=== PATIENT | male | born 1995 | race African-American/Black ===

== ENCOUNTER 2017-01-29 19:23 | Emergency (ER) | payer OTHER ==
[~2017-01-29] VITALS: Ht 167.6 cm; Wt 45.4 kg
[~2017-01-29 19:23] MED LIST: HYDR-2595; SOTA80TA
[2017-01-29 21:13] LABS: Basophils # (auto) 0 uL; Basophils % (auto) 0.3 % (0.0-2.0); DEFINITIVE VIEW TRANSMISSION; Eosinophils # (auto) 0 uL; Eosinophils % (auto) 0.1 % (0.0-7.0); Hemoglobin 18.2 g/dL (13.5-17.5); Lymphocytes # (auto) 1.5 uL; Lymphocytes % (auto) 19.3 % (10.0-50.0); Mean Corpuscular Hemoglobin 28.1 pg (28.0-32.0); Mean Corpuscular Hgb Conc. 32.3 g/dL (32.0-36.0); Mean Corpuscular Volume 86.8 fL (80.0-100.0); Mean Platelet Volume 9.4 fL (7.4-10.4); Monocytes # (auto) 0.3 uL; Monocytes % (auto) 3.9 % (0.0-12.0); Neutrophils # (auto) 5.7 uL; Neutrophils % (auto) 76.4 % (37.0-80.0); Platelet Count (auto) 320 10^3/uL (140-450); Red Cell Distribution Width 13.7 % (11.6-16.0); White Blood Cell 7.5 10^3/uL (4.4-10.8)
[2017-01-29] MEDS ORDERED: ONDANSETRON HCL 4 MG/2 ML VIAL IV ONE (21:15)
[2017-01-29] MEDS ORDERED: HYDROmorphone HCL 2 MG/ML VL IV ONE (21:15)
[2017-01-29 21:34] LABS: Albumin 4.3 g/dL (3.4-5.0); BUN/Creatinine Ratio 32.7; Calcium 10.1 mg/dL (8.5-10.1); Magnesium 2.2 mg/dL (1.6-2.6)
[2017-01-29 21:36] LABS: Bilirubin, Total 0.7 mg/dL (0.2-1.0); Total Protein 8.3 g/dL (6.4-8.2)
[2017-01-29 22:01] LABS: Hematocrit 56.4 % (41.0-53.0)
[2017-01-29 23:07] LABS: Urine Bilirubin 1+ (Negative); Urine Blood Negative /uL (Negative); Urine Color Yellow (Yellow); Urine Glucose Normal (Normal); Urine Mucus MANY (None Seen); Urine Nitrite Negative (Negative); Urine RBC 3 /hpf (0 - 3); Urine pH 6.5 (5.0-8.0)
[2017-01-29] MEDS ORDERED: GLYCERIN ADULT RECTAL SUPP PR ONE (23:15)
[2017-01-29 23:16] LABS: Urine Ketone 4+ (Negative)
[2017-01-29 23:17] LABS: Urine Ca Oxalate Crystal FEW (None Seen)
[2017-01-29] MEDS ORDERED: SODIUM CHLORIDE 0.9% 1,000 ML IV ONE (23:30)
[2017-01-30 02:20] VITALS: BP 91/59
== END 2017-01-30 03:20 | disposition home or self-care (01) ==
LOC: ER 19:38
DX: K59.00 Constipation, unspecified (principal); E86.0 Dehydration; R10.33 Periumbilical pain; I48.91 Unspecified atrial fibrillation; F12.10 Cannabis abuse, uncomplicated; M62.50 Muscle wasting and atrophy, not elsewhere classified, unspecified site
CPT/HCPCS: 36415; 74000; 80053; 81001; 82150; 83690; 83735; 85025; 96361; 96374; 96375; 99285; J1170; J2405; J7030

== ENCOUNTER 2017-10-18 11:39 | Emergency (ER) | payer OTHER ==
[~2017-10-18 11:39] MED LIST changes: -HYDR-2595; +HYDR-2595 PO
[2017-10-18 14:41] LABS: Basophils # (auto) 0 uL; Basophils % (auto) 0.8 % (0.0-2.0); Eosinophils # (auto) 0.1 uL; Hematocrit 44.6 % (41.0-53.0); Hemoglobin 14.5 g/dL (13.5-17.5); Lymphocytes # (auto) 1.3 uL; Lymphocytes % (auto) 23.4 % (10.0-50.0); Mean Corpuscular Hemoglobin 28.9 pg (28.0-32.0); Mean Corpuscular Hgb Conc. 32.5 g/dL (32.0-36.0); Monocytes # (auto) 0.3 uL; Monocytes % (auto) 5.5 % (0.0-12.0); Neutrophils # (auto) 3.8 uL; Neutrophils % (auto) 69.3 % (37.0-80.0); Nucleated Red Blood Cells % 0.1 %; Platelet Count (auto) 329 10^3/uL (140-450); Red Blood Cells 5.01 10^6/uL (4.5-5.90); Red Cell Distribution Width 14.9 % (11.8-14.3); White Blood Cell 5.5 10^3/uL (4.4-10.8)
[2017-10-18 14:59] LABS: Alanine Aminotransferase 41 U/L (16-61); Albumin 3.6 g/dL (3.4-5.0); Alkaline Phosphatase 70 U/L (45-117); Anion Gap 8 (5-15); Aspartate Aminotransferase 51 U/L (15-37); BUN/Creatinine Ratio 106.7; Bilirubin, Total 0.3 mg/dL (0.2-1.0); Blood Urea Nitrogen 16 mg/dL (7-18); Calcium 8.8 mg/dL (8.5-10.1); Carbon Dioxide 24 mmol/L (21-32); Chloride 108 mmol/L (98-107); GFR African American 1073 mL/min; GFR Non-African American 887 mL/min; Glucose 87 mg/dL (74-106); Potassium 4.1 mmol/L (3.5-5.1); Sodium 140 mmol/L (136-145); Total Protein 7.3 g/dL (6.4-8.2)
[2017-10-18] MEDS ORDERED: SODIUM CHLORIDE 0.9% 1,000 ML IV ONE (15:31)
[2017-10-18 17:34] LABS: Urine Bacteria NONE SEEN /hpf (None Seen); Urine Blood Negative /uL (Negative); Urine Mucus FEW (None Seen); Urine Specific Gravity 1.014 (1.001-1.035); Urine WBC 1 /hpf (0 - 3)
[2017-10-18 18:41] VITALS: BP 114/66
== END 2017-10-18 18:36 | disposition home or self-care (01) ==
LOC: ER 11:39 → EDBD 11:39 → ER 18:36
DX: E86.0 Dehydration (principal); I48.91 Unspecified atrial fibrillation
CPT/HCPCS: 36415; 51702; 80053; 81001; 84484; 85025; 93005; 94761; 96360; 99285; J7030

== ENCOUNTER 2017-11-02 03:47 | Inpatient (IN) | payer OTHER ==
[~2017-11-02] VITALS: Ht 142.2 cm; Wt 40.2 kg
[2017-11-02] MEDS ORDERED: DIGOXIN (250MCG/ML) 2 ML AMPULE ONE (03:57)
[2017-11-02] MEDS ORDERED: DIGOXIN (250MCG/ML) 2 ML AMPULE IV ONE (04:15)
[2017-11-02 04:20] LABS: Basophils # (auto) 0.1 uL; Basophils % (auto) 0.8 % (0.0-2.0); Eosinophils # (auto) 0.1 uL; Eosinophils % (auto) 1.6 % (0.0-7.0); Hematocrit 44.7 % (41.0-53.0); Hemoglobin 15.1 g/dL (13.5-17.5); Lymphocytes # (auto) 2.8 uL; Lymphocytes % (auto) 36.3 % (10.0-50.0); Mean Corpuscular Hemoglobin 29.3 pg (28.0-32.0); Mean Corpuscular Hgb Conc. 33.7 g/dL (32.0-36.0); Mean Corpuscular Volume 87.1 fL (80.0-100.0); Monocytes # (auto) 0.7 uL; Monocytes % (auto) 9.4 % (0.0-12.0); Neutrophils # (auto) 3.9 uL; Neutrophils % (auto) 51.9 % (37.0-80.0); Nucleated Red Blood Cells % 0.1 %; Platelet Count (auto) 297 10^3/uL (140-450); Red Blood Cells 5.13 10^6/uL (4.5-5.90); Red Cell Distribution Width 14.8 % (11.8-14.3); White Blood Cell 7.6 10^3/uL (4.4-10.8)
[2017-11-02 04:50] LABS: Alanine Aminotransferase 28 U/L (16-61); Albumin 3.6 g/dL (3.4-5.0); Alkaline Phosphatase 81 U/L (45-117); Anion Gap 9 (5-15); Aspartate Aminotransferase 43 U/L (15-37); Bilirubin, Total 0.1 mg/dL (0.2-1.0); Calcium 8.9 mg/dL (8.5-10.1); Carbon Dioxide 23 mmol/L (21-32); Chloride 109 mmol/L (98-107); Glucose 108 mg/dL (74-106); Magnesium 2.5 mg/dL (1.6-2.6); Sodium 141 mmol/L (136-145)
[2017-11-02 05:22] LABS: Blood Urea Nitrogen 14 mg/dL (7-18)
[2017-11-02 05:24] LABS: BUN/Creatinine Ratio 93.3; GFR African American 1073 mL/min; GFR Non-African American 887 mL/min
[2017-11-02] MEDS ORDERED: MORPHINE SULF INJ 2 MG/ML SYRINGE 1ML IV PRN (09:15)
[2017-11-02] MEDS ORDERED: ONDANSETRON HCL 4 MG/2 ML VIAL IV PRN (09:15)
[2017-11-02] MEDS ORDERED: NITROGLYCERIN 0.4 MG SL TAB SL PRN (09:15)
[2017-11-02] MEDS ORDERED: HYDROcodone-ACET 5/325MG TAB PO PRN (09:15)
[2017-11-02] MEDS ORDERED: MORPHINE SULFATE 10 MG/ML INJ 1ML SDV IV PRN (09:30)
[2017-11-02] MEDS: SOTALOL HCL 80 MG TAB PO SCH (10:00)
[2017-11-02 14:00] VITALS: BP 111/76
[2017-11-02 14:21] VITALS: BP 111/76
[2017-11-02] MEDS ORDERED: CHOL20007 PO (14:33)
[2017-11-02] MEDS ORDERED: ASPI-378 PO (14:33)
[2017-11-02] MEDS ORDERED: ASPirin 81 mg TAB PO ONE (16:15)
[2017-11-02 17:00] VITALS: BP 97/70
[2017-11-02 22:00] VITALS: BP 118/57
[2017-11-03 06:20] VITALS: BP 93/43
[2017-11-03 06:57] LABS: Basophils # (auto) 0 uL; Basophils % (auto) 0.8 % (0.0-2.0); Eosinophils # (auto) 0.1 uL; Eosinophils % (auto) 2.2 % (0.0-7.0); Hematocrit 41.1 % (41.0-53.0); Hemoglobin 13.8 g/dL (13.5-17.5); Lymphocytes # (auto) 1.8 uL; Mean Corpuscular Hemoglobin 29.5 pg (28.0-32.0); Mean Corpuscular Hgb Conc. 33.7 g/dL (32.0-36.0); Mean Corpuscular Volume 87.5 fL (80.0-100.0); Monocytes # (auto) 0.4 uL; Monocytes % (auto) 9.2 % (0.0-12.0); Neutrophils # (auto) 1.9 uL; Neutrophils % (auto) 45.8 % (37.0-80.0); Nucleated Red Blood Cells % 0.2 %; Platelet Count (auto) 213 10^3/uL (140-450); Red Cell Distribution Width 14.6 % (11.8-14.3); White Blood Cell 4.2 10^3/uL (4.4-10.8)
[2017-11-03 07:23] LABS: Anion Gap 8 (5-15); Blood Urea Nitrogen 10 mg/dL (7-18); Calcium 8.6 mg/dL (8.5-10.1); Carbon Dioxide 25 mmol/L (21-32); Chloride 104 mmol/L (98-107); Glucose 79 mg/dL (74-106); Potassium 4.1 mmol/L (3.5-5.1); Sodium 137 mmol/L (136-145)
[2017-11-03 07:41] LABS: BUN/Creatinine Ratio 66.7; GFR African American 1073 mL/min; GFR Non-African American 887 mL/min
[2017-11-03 09:00] VITALS: BP 92/70
[2017-11-03] MEDS: SOTALOL HCL 80 MG TAB PO SCH (09:12)
[2017-11-03] MEDS ORDERED: ASPirin 81 mg TAB PO SCH (10:00)
[2017-11-03 12:30] VITALS: BP 92/70
[2017-11-03 12:53] VITALS: BP 92/70
== END 2017-11-03 14:10 | disposition home or self-care (01) | DRG 201 ==
LOC: EDBD 03:47 → ER 03:54 → TELE 03:55 → TELE-EAST 14:48
PROVIDERS: ADMIT Internal Medicine; ATTEND Internal Medicine
DX: I48.91 Unspecified atrial fibrillation (principal); G71.0 Muscular dystrophy; E86.0 Dehydration; Z79.82 Long term (current) use of aspirin
CPT/HCPCS: 36415; 71045; 80048; 80053; 83735; 84443; 84484; 85025; 93005; 94761; 96374; J2405

== ENCOUNTER 2017-12-06 11:09 | Inpatient (IN) | payer OTHER ==
[~2017-12-06] VITALS: Ht 149.9 cm; Wt 43.9 kg
[~2017-12-06 11:09] MED LIST changes: +ASPI-378 PO; +CHOL20007 PO
[2017-12-06] MEDS ORDERED: SODIUM CHLORIDE 0.9% 1,000 ML IVB ONE (11:17)
[2017-12-06] MEDS ORDERED: ADENOSINE 6 MG/2 ML INJ IV ONE ×5 (11:30→15:00)
[2017-12-06] MEDS ORDERED: DILTIAZEM HCL 50 MG/10 ML VIAL IV ONE (11:45)
[2017-12-06] MEDS ORDERED: DILTIAZEM HCL 25 MG/5 ML VIAL IV ONE (11:45)
[2017-12-06] MEDS ORDERED: DIGOXIN (250MCG/ML) 2 ML AMPULE IV ONE (11:45)
[2017-12-06] MEDS ORDERED: DILTIAZEM 125mg/125ml BAG KIT 125 ML IV ONE (11:45)
[2017-12-06] MEDS ORDERED: AMIODARONE HCL 900 MG in DEXTROSE 500 ML IV SCH (12:14)
[2017-12-06] MEDS ORDERED: AMIODARONE HCL 150 MG in D5W 5% 100 ML IV ONE (12:15)
[2017-12-06] MEDS ORDERED: DIGOXIN 0.25 MG TAB ONE (13:14)
[2017-12-06] MEDS: DIGOXIN 0.25 MG TAB PO SCH (13:18)
[2017-12-06 13:28] LABS: Basophils # (auto) 0 uL; Basophils % (auto) 0.4 % (0.0-2.0); Eosinophils # (auto) 0 uL; Eosinophils % (auto) 0.6 % (0.0-7.0); Hematocrit 42.4 % (41.0-53.0); Hemoglobin 14.3 g/dL (13.5-17.5); Lymphocytes # (auto) 0.8 uL; Lymphocytes % (auto) 10.9 % (10.0-50.0); Mean Corpuscular Hemoglobin 29.6 pg (28.0-32.0); Mean Corpuscular Hgb Conc. 33.6 g/dL (32.0-36.0); Mean Corpuscular Volume 87.9 fL (80.0-100.0); Monocytes # (auto) 0.4 uL; Monocytes % (auto) 5.2 % (0.0-12.0); Neutrophils # (auto) 6.2 uL; Neutrophils % (auto) 82.9 % (37.0-80.0); Nucleated Red Blood Cells % 0.1 %; Platelet Count (auto) 214 10^3/uL (140-450); Red Blood Cells 4.83 10^6/uL (4.5-5.90); Red Cell Distribution Width 14.8 % (11.8-14.3); White Blood Cell 7.4 10^3/uL (4.4-10.8)
[2017-12-06] MEDS ORDERED: HYDROcodone-ACET 5/325MG TAB PO PRN (13:30)
[2017-12-06 13:37] LABS: Albumin 3.5 g/dL (3.4-5.0); Bilirubin, Total 0.2 mg/dL (0.2-1.0); Calcium 8.3 mg/dL (8.5-10.1); Magnesium 2.2 mg/dL (1.6-2.6); Potassium 4.2 mmol/L (3.5-5.1); Total Protein 6.8 g/dL (6.4-8.2)
[2017-12-06] MEDS ORDERED: NITROGLYCERIN 0.4 MG SL TAB SL PRN (13:45)
[2017-12-06] MEDS ORDERED: MORPHINE SULFATE 4 MG/ML SYR/VIAL IV PRN (13:45)
[2017-12-06] MEDS ORDERED: ONDANSETRON HCL 4 MG/2 ML VIAL IV PRN (13:45)
[2017-12-06] MEDS ORDERED: DOCUSATE SOD 100 MG CAP PO PRN (13:45)
[2017-12-06] MEDS ORDERED: TEMAZEPAM 15 MG CAP PO PRN (13:45)
[2017-12-06] MEDS ORDERED: ACETAMINOPHEN 325 MG TAB PO PRN (13:45)
[2017-12-06] MEDS: SODIUM CHLOR 0.9% PF (SALINE LOCK) 10ML VIAL IV SCH ×2 (14:57→22:00)
[2017-12-06] MEDS: FAMOTIDINE 20 MG TAB PO SCH (22:00)
[2017-12-06] MEDS: SOTALOL HCL 80 MG TAB PO SCH (22:00)
[2017-12-07] MEDS: SODIUM CHLOR 0.9% PF (SALINE LOCK) 10ML VIAL IV SCH ×3 (05:25→22:01)
[2017-12-07 05:49] LABS: Basophils # (auto) 0 uL; Basophils % (auto) 0.7 % (0.0-2.0); Eosinophils # (auto) 0.1 uL; Eosinophils % (auto) 1.9 % (0.0-7.0); Hematocrit 38.5 % (41.0-53.0); Hemoglobin 12.9 g/dL (13.5-17.5); Lymphocytes # (auto) 1.9 uL; Mean Corpuscular Hemoglobin 29.2 pg (28.0-32.0); Mean Corpuscular Hgb Conc. 33.5 g/dL (32.0-36.0); Mean Corpuscular Volume 87.3 fL (80.0-100.0); Monocytes # (auto) 0.5 uL; Monocytes % (auto) 10.1 % (0.0-12.0); Neutrophils # (auto) 2.5 uL; Neutrophils % (auto) 49.3 % (37.0-80.0); Nucleated Red Blood Cells % 0.1 %; Platelet Count (auto) 212 10^3/uL (140-450); Red Blood Cells 4.42 10^6/uL (4.5-5.90); Red Cell Distribution Width 14.1 % (11.8-14.3); White Blood Cell 5.1 10^3/uL (4.4-10.8)
[2017-12-07 05:55] LABS: Alanine Aminotransferase 43 U/L (16-61); Albumin 3.1 g/dL (3.4-5.0); Anion Gap 4 (5-15); Aspartate Aminotransferase 47 U/L (15-37); Blood Urea Nitrogen 8 mg/dL (7-18); Calcium 7.8 mg/dL (8.5-10.1); Carbon Dioxide 29 mmol/L (21-32); Chloride 106 mmol/L (98-107); Glucose 75 mg/dL (74-106); Potassium 3.8 mmol/L (3.5-5.1); Sodium 139 mmol/L (136-145)
[2017-12-07 06:00] LABS: Alkaline Phosphatase 56 U/L (45-117); Bilirubin, Total 0.4 mg/dL (0.2-1.0)
[2017-12-07 06:33] LABS: BUN/Creatinine Ratio 53.3; GFR African American 1073 mL/min; GFR Non-African American 887 mL/min
[2017-12-07] MEDS: ASPirin-EC 81 mg tab PO SCH (09:43)
[2017-12-07] MEDS: CHOLECALCIFEROL (VITD3) 1,000 UNIT TAB PO SCH (09:43)
[2017-12-07] MEDS: MULTIPLE VITAMIN TAB PO SCH (09:43)
[2017-12-07] MEDS: SOTALOL HCL 80 MG TAB PO SCH (09:49)
[2017-12-07] MEDS: FAMOTIDINE 20 MG TAB PO SCH ×2 (09:49→22:04)
[2017-12-07 12:48] LABS: Urine Bacteria NONE SEEN /hpf (None Seen); Urine Blood Negative /uL (Negative); Urine Mucus FEW (None Seen); Urine WBC <1 /hpf (0 - 3)
[2017-12-07 13:04] LABS: Alcohol, Urine < 3.0 mg/dL (0-5); Amphetamine Screen, Urine NEGATIVE (NEGATIVE); Barbiturate Scree,Urine NEGATIVE (NEGATIVE); Benzodiazephine Screen, Urine NEGATIVE (NEGATIVE); Cannabinoid Screen, Urine POSITIVE (NEGATIVE); Cocaine Screen, Urine NEGATIVE (NEGATIVE); Opiate Scree,Urine NEGATIVE (NEGATIVE); Phencyclidine Screen, Urine NEGATIVE (NEGATIVE)
[2017-12-07 23:00] VITALS: BP 109/64
[2017-12-07 23:49] VITALS: BP 109/64
[2017-12-08 05:25] VITALS: BP 116/64
[2017-12-08] MEDS: SODIUM CHLOR 0.9% PF (SALINE LOCK) 10ML VIAL IV SCH ×2 (05:43→14:28)
[2017-12-08 09:00] VITALS: BP 99/50
[2017-12-08] MEDS ORDERED: DIGO0.2527 PO (10:12)
[2017-12-08] MEDS: CHOLECALCIFEROL (VITD3) 1,000 UNIT TAB PO SCH (10:31)
[2017-12-08] MEDS: FAMOTIDINE 20 MG TAB PO SCH (10:31)
[2017-12-08] MEDS: MULTIPLE VITAMIN TAB PO SCH (10:31)
[2017-12-08] MEDS: DIGOXIN 0.25 MG TAB PO SCH (10:31)
[2017-12-08] MEDS: ASPirin-EC 81 mg tab PO SCH (10:32)
[2017-12-08 13:00] VITALS: BP 106/63
[2017-12-08 17:00] VITALS: BP 104/59
== END 2017-12-08 18:49 | disposition home or self-care (01) | DRG 201 ==
LOC: ER 11:09 → EDBD 11:09 → TELE 11:10 → TELE-WESTW 12-07 22:51
PROVIDERS: ADMIT Internal Medicine; ATTEND Internal Medicine
DX: I47.1 Supraventricular tachycardia (principal); G71.0 Muscular dystrophy; I42.9 Cardiomyopathy, unspecified; D68.69 Other thrombophilia; E83.51 Hypocalcemia; I48.0 Paroxysmal atrial fibrillation
CPT/HCPCS: 36415; 71045; 80053; 80307; 81001; 83735; 83880; 84443; 84484; 85025; 87086; 93005; 93306; 94761; 96361; 96374; 96375; J0153; J7060

== ENCOUNTER 2017-12-19 11:54 | Observation (INO) | payer OTHER ==
[~2017-12-19 11:54] MED LIST changes: +DIGO0.2527 PO; -SOTA80TA
[2017-12-19 14:15] LABS: Basophils # (auto) 0 uL; Basophils % (auto) 0.5 % (0.0-2.0); Eosinophils # (auto) 0 uL; Eosinophils % (auto) 0.7 % (0.0-7.0); Hematocrit 45.3 % (41.0-53.0); Hemoglobin 15.1 g/dL (13.5-17.5); Lymphocytes # (auto) 1.2 uL; Lymphocytes % (auto) 23.1 % (10.0-50.0); Mean Corpuscular Hemoglobin 29.1 pg (28.0-32.0); Mean Corpuscular Hgb Conc. 33.3 g/dL (32.0-36.0); Mean Corpuscular Volume 87.5 fL (80.0-100.0); Monocytes # (auto) 0.4 uL; Monocytes % (auto) 7.1 % (0.0-12.0); Neutrophils # (auto) 3.6 uL; Neutrophils % (auto) 68.6 % (37.0-80.0); Platelet Count (auto) 249 10^3/uL (140-450); Red Blood Cells 5.18 10^6/uL (4.5-5.90); Red Cell Distribution Width 14.5 % (11.8-14.3); White Blood Cell 5.2 10^3/uL (4.4-10.8)
[2017-12-19 14:28] LABS: INR 0.99 (0.9-1.15); Partial Thromboplastin Time 31.3 sec (22.64-33.71); Prothrombin Time 10.8 sec (9.37-12.3)
[2017-12-19 14:38] LABS: Albumin 3.6 g/dL (3.4-5.0); BUN/Creatinine Ratio 71.4; Bilirubin, Total 0.3 mg/dL (0.2-1.0); Calcium 8.7 mg/dL (8.5-10.1); Magnesium 2.5 mg/dL (1.6-2.6); Potassium 3.7 mmol/L (3.5-5.1); Total Protein 7.3 g/dL (6.4-8.2)
[2017-12-19 16:20] VITALS: BP 107/62
== END 2017-12-19 17:25 | disposition home or self-care (01) | DRG 201 ==
LOC: ER 11:54 → EDBD 11:54 → OVERFLOW 13:48 → ER 17:25
PROVIDERS: ADMIT Family Medicine; ATTEND Family Medicine
DX: R00.2 Palpitations (principal); G71.0 Muscular dystrophy; Z99.3 Dependence on wheelchair; Z82.49 Family history of ischemic heart disease and other diseases of the circulatory system
CPT/HCPCS: 36415; 80053; 83735; 83880; 84443; 84484; 85025; 85610; 85730; 93005; 99285; G0378

== ENCOUNTER 2018-04-18 00:27 | Inpatient (IN) | payer OTHER ==
[~2018-04-18] VITALS: Ht 175.3 cm; Wt 40.4 kg
[~2018-04-18 00:27] MED LIST changes: -DIGO0.2527 PO
[2018-04-18] MEDS ORDERED: ADENOSINE 6 MG/2 ML INJ IV ONE ×4 (00:44→01:00)
[2018-04-18] MEDS ORDERED: LORazepam 2MG/ML-1ML VIAL IV ONE (01:00)
[2018-04-18] MEDS ORDERED: ASPirin 81 mg TAB PO ONE (04:15)
[2018-04-18 05:27] LABS: Basophils # (auto) 0 uL; Basophils % (auto) 0.4 % (0.0-2.0); Eosinophils # (auto) 0 uL; Eosinophils % (auto) 0.6 % (0.0-7.0); Hematocrit 42.6 % (41.0-53.0); Hemoglobin 14.3 g/dL (13.5-17.5); Lymphocytes # (auto) 1.4 uL; Lymphocytes % (auto) 21.5 % (10.0-50.0); Mean Corpuscular Hemoglobin 29.1 pg (28.0-32.0); Mean Corpuscular Hgb Conc. 33.5 g/dL (32.0-36.0); Mean Corpuscular Volume 86.9 fL (80.0-100.0); Monocytes # (auto) 0.5 uL; Monocytes % (auto) 8.3 % (0.0-12.0); Neutrophils # (auto) 4.5 uL; Neutrophils % (auto) 69.2 % (37.0-80.0); Platelet Count (auto) 242 10^3/uL (140-450); Red Cell Distribution Width 14.5 % (11.8-14.3); White Blood Cell 6.5 10^3/uL (4.4-10.8)
[2018-04-18 05:46] LABS: INR 1.02 (0.9-1.15); Partial Thromboplastin Time 31.1 sec (23.78-33.04); Prothrombin Time 10.9 sec (9.27-12.13)
[2018-04-18 05:58] LABS: Alanine Aminotransferase 37 U/L (16-61); Albumin 3.3 g/dL (3.4-5.0); Alkaline Phosphatase 52 U/L (45-117); Anion Gap 10 (5-15); Aspartate Aminotransferase 63 U/L (15-37); BUN/Creatinine Ratio 86.7; Bilirubin, Total 0.4 mg/dL (0.2-1.0); Blood Urea Nitrogen 13 mg/dL (7-18); Calcium 8.1 mg/dL (8.5-10.1); Carbon Dioxide 24 mmol/L (21-32); Chloride 106 mmol/L (98-107); GFR African American 1073 mL/min; GFR Non-African American 887 mL/min; Glucose 96 mg/dL (74-106); Magnesium 2.5 mg/dL (1.6-2.6); Potassium 3.6 mmol/L (3.5-5.1); Sodium 140 mmol/L (136-145); Total Protein 6.1 g/dL (6.4-8.2)
[2018-04-18] MEDS ORDERED: ONDANSETRON HCL 4 MG/2 ML VIAL IV PRN (06:00)
[2018-04-18] MEDS ORDERED: NITROGLYCERIN 0.4 MG SL TAB SL PRN (06:00)
[2018-04-18] MEDS ORDERED: MORPHINE SULF INJ 2 MG/ML SYRINGE 1ML IV PRN (06:00)
[2018-04-18] MEDS ORDERED: TEMAZEPAM 15 MG CAP PO PRN (06:00)
[2018-04-18] MEDS ORDERED: ACETAMINOPHEN 325 MG TAB PO PRN (06:00)
[2018-04-18] MEDS ORDERED: ENOXAPARIN SOD 100 MG/1 ML SYRINGE SC ONE (06:15)
[2018-04-18 08:30] VITALS: BP 117/72
[2018-04-18 09:00] VITALS: BP 117/72
[2018-04-18] MEDS ORDERED: ENOXAPARIN SOD 40 MG/0.4 ML SYRINGE SC SCH (10:00)
[2018-04-18] MEDS: ASPirin 81 mg TAB PO SCH (10:45)
[2018-04-18] MEDS: FAMOTIDINE 20 MG TAB PO SCH ×2 (10:46→21:51)
[2018-04-18] MEDS: ENOXAPARIN SOD 30 MG/0.3 ML SYRINGE SC SCH (10:48)
[2018-04-18] MEDS: SOTALOL HCL 80 MG TAB PO SCH ×2 (10:50→21:51)
[2018-04-18] MEDS: Ensure Enlive Strawberry 8oz Bottle PO SCH ×2 (12:00→18:00)
[2018-04-18 13:00] VITALS: BP 120/69
[2018-04-18 16:45] VITALS: BP 197/62
[2018-04-18 21:30] VITALS: BP 99/58
[2018-04-18] MEDS: MAGNESIUM SULFATE 1GM/100ML 100 ML IV SCH ×2 (21:50→23:31)
[2018-04-19 05:00] VITALS: BP_SYST 110; BP_SYST 147; BP_DIAS 71; BP_DIAS 85
[2018-04-19 06:33] LABS: Basophils # (auto) 0 uL; Basophils % (auto) 0.4 % (0.0-2.0); Eosinophils # (auto) 0.1 uL; Eosinophils % (auto) 1.3 % (0.0-7.0); Hematocrit 40.2 % (41.0-53.0); Lymphocytes # (auto) 1.3 uL; Lymphocytes % (auto) 29.5 % (10.0-50.0); Mean Corpuscular Hemoglobin 29.8 pg (28.0-32.0); Mean Corpuscular Hgb Conc. 34.8 g/dL (32.0-36.0); Mean Corpuscular Volume 85.4 fL (80.0-100.0); Monocytes # (auto) 0.5 uL; Monocytes % (auto) 11.9 % (0.0-12.0); Neutrophils # (auto) 2.4 uL; Neutrophils % (auto) 56.9 % (37.0-80.0); Nucleated Red Blood Cells % 0.1 %; Platelet Count (auto) 198 10^3/uL (140-450); Red Cell Distribution Width 14.4 % (11.8-14.3); White Blood Cell 4.3 10^3/uL (4.4-10.8)
[2018-04-19 07:05] LABS: Alanine Aminotransferase 37 U/L (16-61); Albumin 3.3 g/dL (3.4-5.0); Alkaline Phosphatase 48 U/L (45-117); Anion Gap 8 (5-15); Aspartate Aminotransferase 58 U/L (15-37); Bilirubin, Total 0.4 mg/dL (0.2-1.0); Blood Urea Nitrogen 7 mg/dL (7-18); Calcium 8.1 mg/dL (8.5-10.1); Carbon Dioxide 24 mmol/L (21-32); Chloride 108 mmol/L (98-107); Glucose 84 mg/dL (74-106); Potassium 3.7 mmol/L (3.5-5.1); Sodium 140 mmol/L (136-145); Total Protein 6.1 g/dL (6.4-8.2)
[2018-04-19] MEDS: Ensure Enlive Strawberry 8oz Bottle PO SCH ×3 (08:00→18:00)
[2018-04-19 08:09] LABS: BUN/Creatinine Ratio 46.7; GFR African American 1073 mL/min; GFR Non-African American 887 mL/min
[2018-04-19 09:00] VITALS: BP 100/65
[2018-04-19] MEDS: FAMOTIDINE 20 MG TAB PO SCH ×2 (09:59→21:25)
[2018-04-19] MEDS: ASPirin 81 mg TAB PO SCH (09:59)
[2018-04-19] MEDS: SOTALOL HCL 80 MG TAB PO SCH ×2 (10:00→21:56)
[2018-04-19 13:00] VITALS: BP 107/67
[2018-04-19] MEDS: HYDROcodone-ACET 5/325MG TAB PO PRN (14:30)
[2018-04-19] MEDS: ENOXAPARIN SOD 30 MG/0.3 ML SYRINGE SC SCH (14:30)
[2018-04-19 17:00] VITALS: BP 109/73
[2018-04-19 20:00] VITALS: BP 99/51
[2018-04-19 22:00] VITALS: BP 99/51
[2018-04-20 05:00] VITALS: BP 99/65
[2018-04-20 06:43] LABS: Basophils # (auto) 0 uL; Basophils % (auto) 0.6 % (0.0-2.0); Eosinophils # (auto) 0.1 uL; Eosinophils % (auto) 1.6 % (0.0-7.0); Hematocrit 42.1 % (41.0-53.0); Hemoglobin 14.6 g/dL (13.5-17.5); Lymphocytes # (auto) 1.5 uL; Lymphocytes % (auto) 31.4 % (10.0-50.0); Mean Corpuscular Hemoglobin 29.7 pg (28.0-32.0); Mean Corpuscular Hgb Conc. 34.6 g/dL (32.0-36.0); Mean Corpuscular Volume 85.7 fL (80.0-100.0); Monocytes # (auto) 0.4 uL; Neutrophils # (auto) 2.8 uL; Neutrophils % (auto) 57.4 % (37.0-80.0); Nucleated Red Blood Cells % 0.1 %; Platelet Count (auto) 221 10^3/uL (140-450); Red Blood Cells 4.91 10^6/uL (4.5-5.90); White Blood Cell 4.9 10^3/uL (4.4-10.8)
[2018-04-20 06:58] LABS: Alanine Aminotransferase 38 U/L (16-61); Albumin 3.4 g/dL (3.4-5.0); Alkaline Phosphatase 54 U/L (45-117); Anion Gap 9 (5-15); Aspartate Aminotransferase 47 U/L (15-37); Bilirubin, Total 0.5 mg/dL (0.2-1.0); Blood Urea Nitrogen 8 mg/dL (7-18); Calcium 8.6 mg/dL (8.5-10.1); Carbon Dioxide 24 mmol/L (21-32); Chloride 105 mmol/L (98-107); Glucose 77 mg/dL (74-106); Potassium 4.2 mmol/L (3.5-5.1); Sodium 138 mmol/L (136-145); Total Protein 6.5 g/dL (6.4-8.2)
[2018-04-20 07:01] LABS: BUN/Creatinine Ratio 53.3; GFR African American 1073 mL/min; GFR Non-African American 887 mL/min
[2018-04-20] MEDS: Ensure Enlive Strawberry 8oz Bottle PO SCH ×2 (08:00→12:00)
[2018-04-20 09:00] VITALS: BP 91/60
[2018-04-20] MEDS: HYDROcodone-ACET 5/325MG TAB PO PRN (10:43)
[2018-04-20] MEDS: ASPirin 81 mg TAB PO SCH (10:44)
[2018-04-20] MEDS: FAMOTIDINE 20 MG TAB PO SCH (10:48)
[2018-04-20] MEDS: SOTALOL HCL 80 MG TAB PO SCH (10:53)
[2018-04-20] MEDS: ENOXAPARIN SOD 30 MG/0.3 ML SYRINGE SC SCH (10:54)
[2018-04-20 13:00] VITALS: BP 97/53
[2018-04-20 16:21] VITALS: BP 114/64
== END 2018-04-20 17:15 | disposition home or self-care (01) | DRG 201 ==
LOC: ER 00:29 → TELE 00:30 → TELE-WESTW 08:53
PROVIDERS: ADMIT Nurse Practitioner; ATTEND Internal Medicine
DX: I47.1 Supraventricular tachycardia (principal); G71.0 Muscular dystrophy; I42.9 Cardiomyopathy, unspecified; E44.0 Moderate protein-calorie malnutrition; I50.32 Chronic diastolic (congestive) heart failure; I48.92 Unspecified atrial flutter; E88.09 Other disorders of plasma-protein metabolism, not elsewhere classified; I48.2 Chronic atrial fibrillation; E86.0 Dehydration; I05.0 Rheumatic mitral stenosis; F12.90 Cannabis use, unspecified, uncomplicated; Z79.82 Long term (current) use of aspirin; Z82.49 Family history of ischemic heart disease and other diseases of the circulatory system
CPT/HCPCS: 36415; 71045; 80053; 83735; 83880; 84443; 84484; 85025; 85379; 85610; 85730; 92960; 93005; 96374; 96375; 96376; 97163; 99291; J0153; J2405

== ENCOUNTER 2018-05-19 01:34 | Emergency (ER) | payer OTHER ==
[2018-05-19 03:08] LABS: Basophils # (auto) 0.1 uL; Basophils % (auto) 1.2 % (0.0-2.0); Eosinophils # (auto) 0.1 uL; Eosinophils % (auto) 1.2 % (0.0-7.0); Hematocrit 44.3 % (41.0-53.0); Hemoglobin 14.6 g/dL (13.5-17.5); Lymphocytes # (auto) 1.3 uL; Lymphocytes % (auto) 27.9 % (10.0-50.0); Mean Corpuscular Hemoglobin 28.6 pg (28.0-32.0); Mean Corpuscular Volume 86.6 fL (80.0-100.0); Monocytes # (auto) 0.3 uL; Neutrophils # (auto) 2.9 uL; Neutrophils % (auto) 62.7 % (37.0-80.0); Nucleated Red Blood Cells % 0.1 %; Platelet Count (auto) 214 10^3/uL (140-450); Red Blood Cells 5.11 10^6/uL (4.5-5.90); Red Cell Distribution Width 14.6 % (11.8-14.3); White Blood Cell 4.7 10^3/uL (4.4-10.8)
[2018-05-19 03:23] LABS: INR 1.09 (0.9-1.15); Partial Thromboplastin Time 33.4 sec (23.78-33.04); Prothrombin Time 11.6 sec (9.27-12.13)
[2018-05-19 03:29] LABS: Alanine Aminotransferase 34 U/L (16-61); Albumin 3.4 g/dL (3.4-5.0); Anion Gap 8 (5-15); Aspartate Aminotransferase 36 U/L (15-37); Blood Urea Nitrogen 10 mg/dL (7-18); Calcium 8.2 mg/dL (8.5-10.1); Carbon Dioxide 24 mmol/L (21-32); Chloride 107 mmol/L (98-107); Glucose 84 mg/dL (74-106); Magnesium 2.2 mg/dL (1.6-2.6); Potassium 3.7 mmol/L (3.5-5.1); Sodium 139 mmol/L (136-145)
[2018-05-19 03:33] LABS: Alkaline Phosphatase 46 U/L (45-117); Bilirubin, Total 0.4 mg/dL (0.2-1.0); Total Protein 6.4 g/dL (6.4-8.2)
[2018-05-19 03:45] LABS: GFR African American 1713 mL/min; GFR Non-African American 1416 mL/min
[2018-05-19 06:20] VITALS: BP 114/67
== END 2018-05-19 08:09 | disposition home or self-care (01) ==
LOC: EDBD 01:34 → ER 01:34 → EDSEX 01:34 → ER 08:09
DX: R00.2 Palpitations (principal); G71.0 Muscular dystrophy; I48.91 Unspecified atrial fibrillation
CPT/HCPCS: 36415; 71045; 80053; 83735; 83880; 84484; 85025; 85610; 85730; 93005; 94761

== ENCOUNTER 2018-07-09 13:12 | Observation (INO) | payer OTHER ==
[~2018-07-09] VITALS: Ht 180.3 cm; Wt 52.2 kg
[2018-07-09 14:56] LABS: Basophils # (auto) 0 uL; Basophils % (auto) 0.5 % (0.0-2.0); Eosinophils # (auto) 0.1 uL; Eosinophils % (auto) 1.5 % (0.0-7.0); Hematocrit 45.1 % (41.0-53.0); Hemoglobin 15.1 g/dL (13.5-17.5); Lymphocytes # (auto) 1.4 uL; Lymphocytes % (auto) 24.8 % (10.0-50.0); Mean Corpuscular Hemoglobin 29.6 pg (28.0-32.0); Mean Corpuscular Hgb Conc. 33.4 g/dL (32.0-36.0); Mean Corpuscular Volume 88.4 fL (80.0-100.0); Monocytes # (auto) 0.5 uL; Monocytes % (auto) 9.4 % (0.0-12.0); Neutrophils # (auto) 3.6 uL; Neutrophils % (auto) 63.8 % (37.0-80.0); Nucleated Red Blood Cells % 0.1 %; Platelet Count (auto) 220 10^3/uL (140-450); Red Cell Distribution Width 14.4 % (11.8-14.3); White Blood Cell 5.7 10^3/uL (4.4-10.8)
[2018-07-09 15:15] LABS: Alanine Aminotransferase 35 U/L (16-61); Albumin 3.4 g/dL (3.4-5.0); Alkaline Phosphatase 60 U/L (45-117); Anion Gap 4 (5-15); Aspartate Aminotransferase 41 U/L (15-37); BUN/Creatinine Ratio 86.7; Bilirubin, Total 0.4 mg/dL (0.2-1.0); Blood Urea Nitrogen 13 mg/dL (7-18); Calcium 8.5 mg/dL (8.5-10.1); Carbon Dioxide 26 mmol/L (21-32); Chloride 110 mmol/L (98-107); GFR African American 1073 mL/min; GFR Non-African American 887 mL/min; Glucose 76 mg/dL (74-106); Potassium 3.7 mmol/L (3.5-5.1); Sodium 140 mmol/L (136-145); Total Protein 6.7 g/dL (6.4-8.2)
[2018-07-09 18:34] VITALS: BP 100/60
== END 2018-07-09 19:34 | disposition home or self-care (01) | DRG 207 ==
LOC: EDBD 13:12 → ER 13:12 → OVERFLOW 13:13 → ER 19:34
PROVIDERS: ADMIT Family Medicine; ATTEND Family Medicine
DX: R00.2 Palpitations (principal); G71.0 Muscular dystrophy; F12.10 Cannabis abuse, uncomplicated; Z82.49 Family history of ischemic heart disease and other diseases of the circulatory system
CPT/HCPCS: 36415; 71045; 80053; 85025; 99285; G0378; 93005

== ENCOUNTER 2018-08-19 03:13 | Inpatient (IN) | payer OTHER ==
[~2018-08-19] VITALS: Ht 157.5 cm; Wt 40.2 kg
[2018-08-19] MEDS ORDERED: AMIODARONE HCL (50 MG/ ML) 3 ML VIAL IV ONE (03:31)
[2018-08-19] MEDS ORDERED: SODIUM CHLORIDE 0.9% 1,000 ML IVB ONE (03:33)
[2018-08-19] MEDS ORDERED: AMIODARONE HCL 150 MG in D5W 5% 100 ML IV ONE (03:45)
[2018-08-19 03:51] LABS: Basophils # (auto) 0.1 uL; Eosinophils # (auto) 0.1 uL; Eosinophils % (auto) 1.9 % (0.0-7.0); Hematocrit 46.3 % (41.0-53.0); Hemoglobin 15.4 g/dL (13.5-17.5); Lymphocytes # (auto) 2.1 uL; Lymphocytes % (auto) 32.3 % (10.0-50.0); Mean Corpuscular Hemoglobin 29.1 pg (28.0-32.0); Mean Corpuscular Hgb Conc. 33.2 g/dL (32.0-36.0); Mean Corpuscular Volume 87.8 fL (80.0-100.0); Monocytes # (auto) 0.6 uL; Neutrophils # (auto) 3.7 uL; Neutrophils % (auto) 55.8 % (37.0-80.0); Platelet Count (auto) 246 10^3/uL (140-450); Red Blood Cells 5.27 10^6/uL (4.5-5.90); Red Cell Distribution Width 14.1 % (11.8-14.3); White Blood Cell 6.6 10^3/uL (4.4-10.8)
[2018-08-19] MEDS ORDERED: AMIODARONE HCL 900 MG IV ONE (03:58)
[2018-08-19] MEDS: AMIODARONE HCL 900 MG in DEXTROSE 500 ML IV SCH ×2 (04:06→20:45)
[2018-08-19 04:09] LABS: INR 1.02 (0.9-1.15); Partial Thromboplastin Time 29.8 sec (23.78-33.04); Prothrombin Time 10.9 sec (9.27-12.13)
[2018-08-19 04:11] LABS: Albumin 3.4 g/dL (3.4-5.0); Calcium 8.5 mg/dL (8.5-10.1); Magnesium 2.1 mg/dL (1.6-2.6); Potassium 3.9 mmol/L (3.5-5.1)
[2018-08-19 04:17] LABS: BUN/Creatinine Ratio 39.3; Bilirubin, Total 0.2 mg/dL (0.2-1.0); Total Protein 6.7 g/dL (6.4-8.2)
[2018-08-19] MEDS ORDERED: ACETAMINOPHEN 325 MG TAB PO PRN (06:30)
[2018-08-19] MEDS ORDERED: MORPHINE SULFATE 4 MG/ML SYR/VIAL IV PRN (06:30)
[2018-08-19] MEDS ORDERED: TEMAZEPAM 15 MG CAP PO PRN (06:30)
[2018-08-19] MEDS ORDERED: NITROGLYCERIN 0.4 MG SL TAB SL PRN (06:30)
[2018-08-19] MEDS: ASPirin 81 mg TAB PO SCH (09:50)
[2018-08-19] MEDS: FAMOTIDINE 20 MG TAB PO SCH ×2 (09:50→22:00)
[2018-08-19] MEDS: SOTALOL HCL 80 MG TAB PO SCH ×2 (10:00→22:00)
[2018-08-19] MEDS ORDERED: POTASSIUM CHL 10 Meq TABLET PO ONE (12:15)
[2018-08-19] MEDS: DIGOXIN (250MCG/ML) 2 ML AMPULE IV SCH ×2 (12:28→18:14)
[2018-08-19 20:20] VITALS: BP 124/69
[2018-08-19 22:56] VITALS: BP 124/69
[2018-08-20] MEDS: DIGOXIN (250MCG/ML) 2 ML AMPULE IV SCH (00:15)
[2018-08-20 04:00] VITALS: BP 101/41
[2018-08-20 05:56] LABS: Basophils # (auto) 0 uL; Basophils % (auto) 0.2 % (0.0-2.0); Eosinophils # (auto) 0.1 uL; Eosinophils % (auto) 0.7 % (0.0-7.0); Hematocrit 39.3 % (41.0-53.0); Hemoglobin 13.1 g/dL (13.5-17.5); Lymphocytes # (auto) 1.4 uL; Lymphocytes % (auto) 15.7 % (10.0-50.0); Mean Corpuscular Hemoglobin 29.1 pg (28.0-32.0); Mean Corpuscular Hgb Conc. 33.2 g/dL (32.0-36.0); Mean Corpuscular Volume 87.5 fL (80.0-100.0); Monocytes # (auto) 0.9 uL; Monocytes % (auto) 9.9 % (0.0-12.0); Neutrophils # (auto) 6.4 uL; Neutrophils % (auto) 73.5 % (37.0-80.0); Platelet Count (auto) 176 10^3/uL (140-450); Red Blood Cells 4.49 10^6/uL (4.5-5.90); Red Cell Distribution Width 14.2 % (11.8-14.3); White Blood Cell 8.8 10^3/uL (4.4-10.8)
[2018-08-20 06:34] LABS: Chloride 107 mmol/L (98-107); Sodium 139 mmol/L (136-145)
[2018-08-20 06:41] LABS: Alanine Aminotransferase 30 U/L (16-61); Albumin 3.1 g/dL (3.4-5.0); Alkaline Phosphatase 57 U/L (45-117); Anion Gap 9 (5-15); Aspartate Aminotransferase 41 U/L (15-37); Bilirubin, Total 0.8 mg/dL (0.2-1.0); Blood Urea Nitrogen 7 mg/dL (7-18); Calcium 8.2 mg/dL (8.5-10.1); Carbon Dioxide 23 mmol/L (21-32); Glucose 87 mg/dL (74-106)
[2018-08-20 06:45] LABS: BUN/Creatinine Ratio 46.7; GFR African American 1073 mL/min; GFR Non-African American 887 mL/min
[2018-08-20 08:00] VITALS: BP 114/87
[2018-08-20] MEDS ORDERED: DIGOXIN 0.25 MG TAB PO SCH (10:00)
[2018-08-20] MEDS: SOTALOL HCL 80 MG TAB PO SCH (10:00)
[2018-08-20] MEDS: AMIODARONE HCL 200 MG TAB PO SCH ×2 (10:15→20:25)
[2018-08-20] MEDS: ASPirin 81 mg TAB PO SCH (10:15)
[2018-08-20] MEDS: FAMOTIDINE 20 MG TAB PO SCH ×2 (10:15→20:25)
[2018-08-20] MEDS: ONDANSETRON HCL 4 MG/2 ML VIAL IV PRN ×2 (10:16→20:25)
[2018-08-20 10:50] LABS: Urine WBC None Seen /hpf (0 - 3)
[2018-08-20 10:54] LABS: Alcohol, Urine < 3.0 mg/dL (0-5); Amphetamine Screen, Urine NEGATIVE (NEGATIVE); Barbiturate Scree,Urine NEGATIVE (NEGATIVE); Benzodiazephine Screen, Urine NEGATIVE (NEGATIVE); Cannabinoid Screen, Urine POSITIVE (NEGATIVE); Cocaine Screen, Urine NEGATIVE (NEGATIVE); Opiate Scree,Urine NEGATIVE (NEGATIVE); Phencyclidine Screen, Urine NEGATIVE (NEGATIVE)
[2018-08-20 11:24] LABS: Urine Bacteria NONE SEEN /hpf (None Seen); Urine Blood Negative /uL (Negative); Urine Specific Gravity 1.015 (1.001-1.035)
[2018-08-20 11:58] VITALS: BP 107/66
[2018-08-20] MEDS: HYDROcodone-ACET 5/325MG TAB PO PRN (13:13)
[2018-08-20] MEDS: ENOXAPARIN SOD 30 MG/0.3 ML SYRINGE SC SCH (15:39)
[2018-08-20 15:57] VITALS: BP 112/65
[2018-08-20 19:52] VITALS: BP 104/62
[2018-08-20 23:50] VITALS: BP 113/57
[2018-08-21 04:44] VITALS: BP 112/75
[2018-08-21 06:31] LABS: Basophils # (auto) 0 uL; Basophils % (auto) 0.5 % (0.0-2.0); Eosinophils # (auto) 0 uL; Eosinophils % (auto) 0.5 % (0.0-7.0); Hematocrit 40.1 % (41.0-53.0); Hemoglobin 13.7 g/dL (13.5-17.5); Lymphocytes # (auto) 1.3 uL; Lymphocytes % (auto) 21.3 % (10.0-50.0); Mean Corpuscular Hemoglobin 29.9 pg (28.0-32.0); Mean Corpuscular Hgb Conc. 34.1 g/dL (32.0-36.0); Mean Corpuscular Volume 87.8 fL (80.0-100.0); Monocytes # (auto) 0.6 uL; Monocytes % (auto) 9.8 % (0.0-12.0); Neutrophils # (auto) 4.3 uL; Neutrophils % (auto) 67.9 % (37.0-80.0); Nucleated Red Blood Cells % 0.1 %; Platelet Count (auto) 182 10^3/uL (140-450); Red Blood Cells 4.57 10^6/uL (4.5-5.90); Red Cell Distribution Width 13.8 % (11.8-14.3); White Blood Cell 6.3 10^3/uL (4.4-10.8)
[2018-08-21 06:49] LABS: Anion Gap 10 (5-15); Blood Urea Nitrogen 6 mg/dL (7-18); Calcium 8.4 mg/dL (8.5-10.1); Carbon Dioxide 22 mmol/L (21-32); Chloride 104 mmol/L (98-107); Glucose 62 mg/dL (74-106); Potassium 3.9 mmol/L (3.5-5.1); Sodium 136 mmol/L (136-145)
[2018-08-21 07:07] LABS: GFR African American 1713 mL/min; GFR Non-African American 1416 mL/min
[2018-08-21] MEDS ORDERED: ENOXAPARIN SOD 40 MG/0.4 ML SYRINGE SC SCH (10:00)
[2018-08-21] MEDS: ASPirin 81 mg TAB PO SCH (10:45)
[2018-08-21] MEDS: DIGOXIN 0.125 MG TAB PO SCH (10:47)
[2018-08-21] MEDS: AMIODARONE HCL 200 MG TAB PO SCH ×2 (10:48→22:10)
[2018-08-21] MEDS: ENOXAPARIN SOD 30 MG/0.3 ML SYRINGE SC SCH (10:48)
[2018-08-21] MEDS: FAMOTIDINE 20 MG TAB PO SCH ×2 (10:48→22:10)
[2018-08-21] MEDS: HYDROcodone-ACET 5/325MG TAB PO PRN ×2 (11:57→22:12)
[2018-08-21 12:00] VITALS: BP 96/58
[2018-08-21 16:00] VITALS: BP 101/70
[2018-08-21 20:00] VITALS: BP 107/60
[2018-08-22 04:00] VITALS: BP 107/55
[2018-08-22 07:55] VITALS: BP 104/54
[2018-08-22] MEDS: DIGOXIN 0.125 MG TAB PO SCH (10:09)
[2018-08-22] MEDS: AMIODARONE HCL 200 MG TAB PO SCH (10:10)
[2018-08-22] MEDS: ASPirin 81 mg TAB PO SCH (10:10)
[2018-08-22] MEDS: FAMOTIDINE 20 MG TAB PO SCH (10:10)
[2018-08-22] MEDS: ENOXAPARIN SOD 30 MG/0.3 ML SYRINGE SC SCH (10:10)
[2018-08-22] MEDS ORDERED: AMI200T PO (11:00)
[2018-08-22] MEDS ORDERED: DIGO0.1229 PO (11:00)
[2018-08-22 11:06] VITALS: BP 110/66
[2018-08-22 11:50] VITALS: BP 110/66
== END 2018-08-22 15:15 | disposition home or self-care (01) | DRG 194 ==
LOC: EDUNIT# 03:13 → ER 03:18 → OVERFLOW 06:31 → DOU IN ICU 20:17
PROVIDERS: ADMIT Nurse Practitioner; ATTEND Internal Medicine
DX: I50.31 Acute diastolic (congestive) heart failure (principal); I47.2 Ventricular tachycardia; G71.00 Muscular dystrophy, unspecified; D68.69 Other thrombophilia; I48.0 Paroxysmal atrial fibrillation; I42.9 Cardiomyopathy, unspecified; I47.1 Supraventricular tachycardia; R74.8 Abnormal levels of other serum enzymes; Z74.01 Bed confinement status
CPT/HCPCS: 36415; 71045; 80048; 80053; 80307; 81001; 83735; 83880; 84443; 84484; 85025; 85610; 85730; 87081; 87086; 93005; 96361; 96374; 96375; 99291; G0378; J2405; J7060

== ENCOUNTER 2019-03-07 14:37 | Inpatient (IN) | payer OTHER | END 2019-03-11 10:16 | disposition E | LOC: ER 14:37 → TELE-WESTW 17:16 | DX: A41.9 Sepsis, unspecified organism (principal); J69.0 Pneumonitis due to inhalation of food and vomit; E43 Unspecified severe protein-calorie malnutrition; G71.00 Muscular dystrophy, unspecified; I42.9 Cardiomyopathy, unspecified; I48.91 Unspecified atrial fibrillation; E87.1 Hypo-osmolality and hyponatremia; E86.0 Dehydration; E87.6 Hypokalemia ==